=== PATIENT | male | born 1960 | race African-American/Black ===

== ENCOUNTER 2018-08-07 19:17 | Emergency (ER) | payer MEDICAID ==
[~2018-08-07] VITALS: Ht 188 cm; Wt 99.9 kg
[2018-08-07 19:30] VITALS: BP 152/84
[2018-08-07] MEDS ORDERED: ACETAMINOPHEN 500 MG TABLET PO ONE (20:00)
[2018-08-07] MEDS ORDERED: DEXAMETHASONE 4 MG/ML, 1ML PO ONE (20:00)
[2018-08-07] MEDS ORDERED: ACETAMINOPHEN 500 MG TABLET ONE (20:07)
[2018-08-07] MEDS ORDERED: DEXAMETHASONE 4 MG/ML, 5ML ONE (20:07)
--- NOTE | 2018-08-07 20:11 | NUR ---
PT MEDICATED FOR FEVER
== END 2018-08-07 20:29 | disposition home or self-care (01) ==
LOC: ED 20:23
DX: J15.9 Unspecified bacterial pneumonia (principal); F17.200 Nicotine dependence, unspecified, uncomplicated
CPT/HCPCS: 71046; 99283; J1100

== ENCOUNTER 2019-08-26 01:16 | Emergency (ER) | payer SELFPAY ==
[~2019-08-26] VITALS: Ht 188 cm; Wt 68.2 kg
--- NOTE | 2019-08-26 01:23 | NUR ---
EKG DONE AT TIME OF ARRIVAL
--- NOTE | 2019-08-26 01:33 | NUR ---
PT UP TO BR WITH STEADY GAIT.
[2019-08-26 02:13] VITALS: BP 164/78
--- NOTE | 2019-08-26 02:14 | NUR ---
PT RESTING ON GURNEY WITH EYES CLOSED. MONITORING IN PLACE, CALL LIGHT WITHIN REACH. LIGHTS DIMMED FOR PT COMFORT.
[2019-08-26 02:16] LABS: ALBUMIN 3.1 g/dL (3.4-5.0); ANION GAP 5 mmol/L (5-15); CALCIUM 8.7 mg/dL (8.5-10.1); CHLORIDE 108 mmol/L (98-107)
[2019-08-26 02:22] LABS: ALANINE AMINOTRANSFERASE 48 U/L (12-78); ALKALINE PHOSPHATASE 74 U/L (45-117); BILIRUBIN,TOTAL 0.4 mg/dL (0.2-1.0); CREATININE 0.81 mg/dL (0.7-1.3); TOTAL PROTEIN 7.2 g/dL (6.4-8.2); TROPONIN I < 0.015 ng/mL (0.000-0.045)
[2019-08-26 02:24] LABS: MEAN CORPUSCULAR HEMOGLOBIN 18.3 pg (27.5-34.5); MEAN CORPUSCULAR VOLUME 62.1 fL (81-97); MEAN PLATELET VOLUME 7.1 fL (7.4-10.4); PLATELET COUNT 320 x10^3/uL (130-400); RED BLOOD COUNT 4.61 x10^6/uL (4.38-5.82); RED CELL DISTRIBUTION WIDTH 20.8 % (9.4-14.8)
[2019-08-26 02:26] LABS: MEAN CORPUSCULAR HGB CONC 29.5 g/dL (33.2-36.2)
[2019-08-26 02:47] LABS: MD YES
[2019-08-26 02:52] LABS: BAND#(MANUAL) 0.05 x10^3/uL; BANDS%(MANUAL) 1 % (0-7); LYMPH#(MANUAL) 2.48 x10^3/uL (1-3.4); LYMPHS% (MANUAL) 46 % (22-44); METAMYELOCYTES# (MANUAL) 0.05 x10^3/uL (0-0); METAMYELOCYTES% (MANUAL) 1 % (0-1); MONOS#(MANUAL) 0.65 x10^3/uL (0.3-2.7); MONOS% (MANUAL) 12 % (2-9); SEG#(MANUAL) 2.16 x10^3/uL (1.8-6.8); SEGS% (MANUAL) 40 % (42-75)
[2019-08-26 02:53] LABS: ANISOCYTOSIS 1+; HYPOCHROMIA 2+; MICROCYTOSIS 2+
[2019-08-26 02:54] LABS: OVALOCYTES 1+; POLYCHROMASIA 1+
[2019-08-26 02:55] LABS: <PLATELET ESTIMATE> ADEQUATE; <PLT MORPHOLOGY> NORMAL PLT MORPH; SCHISTOCYTES 1+; TARGET CELLS 1+
== END 2019-08-26 03:49 | disposition home or self-care (01) ==
LOC: ED 02:45
DX: K29.00 Acute gastritis without bleeding (principal); D50.9 Iron deficiency anemia, unspecified; R10.12 Left upper quadrant pain; R94.31 Abnormal electrocardiogram [ECG] [EKG]
CPT/HCPCS: 36415; 71045; 80053; 83690; 84484; 85025; 93005; 99285

== ENCOUNTER 2020-07-14 20:26 | Emergency (ER) | payer MEDICAID ==
[~2020-07-14] VITALS: Ht 188 cm; Wt 93.8 kg
--- NOTE | 2020-07-14 21:05 | NUR ---
patient resting in bed in NAD. VS remain stable. family member/friend at bedside. patient reports "i vomited in the sink when i got in this room". patient states this is the first time he has vomited with this pain. has no history of same. call salgado in reach. safety maintained. will continue to monitor
[2020-07-14] MEDS ORDERED: MORPHINE SULFATE 4 MG/ML, 1ML ONE (21:30)
[2020-07-14] MEDS ORDERED: ONDANSETRON 2MG/ML, 2ML ONE (21:30)
[2020-07-14] MEDS ORDERED: SODIUM CHLORIDE FLUSH 10ML SYR IVF ONE (21:30)
[2020-07-14] MEDS ORDERED: MORPHINE SULFATE 4 MG/ML, 1ML IVPush PRN (21:30)
[2020-07-14] MEDS ORDERED: ONDANSETRON 2MG/ML, 2ML IVPush ONE (21:30)
[2020-07-14 22:03] LABS: MEAN CORPUSCULAR HEMOGLOBIN 19.7 pg (27.5-34.5); MEAN PLATELET VOLUME 6.9 fL (7.4-10.4); PLATELET COUNT 383 x10^3/uL (130-400); RED BLOOD COUNT 4.19 x10^6/uL (4.38-5.82); RED CELL DISTRIBUTION WIDTH 21.9 % (9.4-14.8)
--- NOTE | 2020-07-14 22:03 | NUR ---
patient resting in bed in NAD. pain medication and nausea medication administered with effect. VS remain stable. will continue to monitor. waiting for labs to result for CT. urinal at bedside and cleaning wipe. patient aware of need for clean catch UA
[2020-07-14 22:10] LABS: ANION GAP 3 mmol/L (5-15); CALCIUM 8.9 mg/dL (8.5-10.1); CHLORIDE 108 mmol/L (98-107)
[2020-07-14 22:15] LABS: ALANINE AMINOTRANSFERASE 24 U/L (12-78); ALKALINE PHOSPHATASE 59 U/L (45-117); BILIRUBIN,TOTAL 0.3 mg/dL (0.2-1.0); CREATININE 1.05 mg/dL (0.7-1.3); TOTAL PROTEIN 6.7 g/dL (6.4-8.2)
[2020-07-14 22:24] LABS: MICROSCOPIC INDICATED
[2020-07-14 22:46] LABS: MD YES
[2020-07-14 22:47] LABS: ANISOCYTOSIS 1+; BASOS#(MANUAL) 0.09 x10^3/uL (0-0.1); BASOS% (MANUAL) 2 % (0-1); EOS#(MANUAL) 0.09 x10^3/uL (0.0-0.4); EOS% (MANUAL) 2 % (1-7); LYMPH#(MANUAL) 1.41 x10^3/uL (1-3.4); LYMPHS% (MANUAL) 30 % (22-44); MICROCYTOSIS 2+; MONOS#(MANUAL) 0.75 x10^3/uL (0.3-2.7); MONOS% (MANUAL) 16 % (2-9); SEG#(MANUAL) 2.35 x10^3/uL (1.8-6.8); SEGS% (MANUAL) 50 % (42-75)
[2020-07-14 22:48] LABS: <PLATELET ESTIMATE> ADEQUATE; HYPOCHROMIA 2+; OVALOCYTES 1+; TARGET CELLS 1+
[2020-07-14 22:49] LABS: <PLT MORPHOLOGY> NORMAL PLT MORPH
--- NOTE | 2020-07-14 23:27 | NUR ---
patient denies pain/nausea. resting in bed in NAD. Vs remain stable. call salgado in reach
[2020-07-14] MEDS ORDERED: OMNIPAQUE 350 MG/ML, 100ML BOTTLE ONE (23:47)
--- NOTE | 2020-07-14 23:47 | NUR ---
discharge instructions reviewed with patient. no further questions at this time. prescription handed directly to patient. all personal belongings with patient on dc. IV removed per dc protocol. denies N/V/ pain at time of DC. steady gait to lobby.
[2020-07-14 23:48] VITALS: BP 146/87
== END 2020-07-15 | disposition home or self-care (01) ==
LOC: ED 23:00
DX: R10.32 Left lower quadrant pain (principal); R10.12 Left upper quadrant pain; K59.00 Constipation, unspecified; R11.2 Nausea with vomiting, unspecified
CPT/HCPCS: 36415; 74177; 80053; 81001; 83690; 85025; 96374; 96375; 99285; J2270; J2405; Q9967

== ENCOUNTER 2020-11-12 15:04 | Emergency (ER) | payer MEDICAID ==
[~2020-11-12] VITALS: Ht 190.5 cm; Wt 90.5 kg
[2020-11-12 15:12] VITALS: BP 132/80
--- NOTE | 2020-11-12 17:33 | NUR ---
principal cyber engineer: attempted to call pt to room, no answer in lobby
--- NOTE | 2020-11-12 17:47 | NUR ---
mlt: attempted to call pt to room, no answer in lobby
--- NOTE | 2020-11-12 18:45 | NUR ---
table cut off saw operator: attempted to call pt from lobby to room, no answer in lobby
== END 2020-11-12 18:47 | disposition left against medical advice (07) ==
LOC: ED 15:05
DX: K59.00 Constipation, unspecified (principal); Z53.21 Procedure and treatment not carried out due to patient leaving prior to being seen by health care provider
CPT/HCPCS: 99281

== ENCOUNTER 2021-02-05 22:55 | Inpatient (IN) | payer MEDICAID ==
[~2021-02-05] VITALS: Ht 188 cm; Wt 80.3 kg
[2021-02-05 23:21] LABS: BASOPHILS % (AUTO) 1 % (0-1); EOSINOPHILS % (AUTO) 4 % (1-7); LYMPHOCYTES % (AUTO) 35 % (22-44); MEAN CORPUSCULAR HEMOGLOBIN 17.6 pg (27.5-34.5); MEAN PLATELET VOLUME 8.2 fL (7.4-10.4); MONOCYTES % (AUTO) 20 % (2-9); NEUTROPHILS % (AUTO) 40 % (42-75); PLATELET COUNT 330 x10^3/uL (130-400); RED BLOOD COUNT 3.38 x10^6/uL (4.38-5.82); RED CELL DISTRIBUTION WIDTH 20.1 % (9.4-14.8)
[2021-02-05 23:29] LABS: ALANINE AMINOTRANSFERASE 33 U/L (12-78); ALBUMIN 2.5 g/dL (3.4-5.0); ANION GAP 4 mmol/L (5-15); CALCIUM 8.2 mg/dL (8.5-10.1); CHLORIDE 107 mmol/L (98-107); CREATININE 1.22 mg/dL (0.7-1.3)
[2021-02-05 23:34] LABS: ALKALINE PHOSPHATASE 66 U/L (45-117); BILIRUBIN,TOTAL 0.3 mg/dL (0.2-1.0); TOTAL PROTEIN 6.4 g/dL (6.4-8.2); TROPONIN I < 0.015 ng/mL (0.000-0.045)
--- NOTE | 2021-02-05 23:37 | NUR ---
ATTEMPTED TO CALL ERINN (PATIENT EMERGENCY CONTACT) [phone] PER PATIENT REQUEST. NO ANSWER.
[2021-02-05 23:49] LABS: ANISOCYTOSIS 2+; HYPOCHROMIA 2+; MICROCYTOSIS 2+; OVALOCYTES 1+; SCHISTOCYTES 1+; TARGET CELLS 1+
[2021-02-05 23:50] LABS: <PLATELET ESTIMATE> ADEQUATE; <PLT MORPHOLOGY> NORMAL PLT MORPH
[2021-02-06] VITALS (8 sets, daily range): BP systolic 110–157; BP diastolic 67–93
--- NOTE | 2021-02-06 00:05 | NUR ---
BLOOD CONSENT SIGNED AT THIS TIME.
--- NOTE | 2021-02-06 00:36 | NUR ---
ATTEMPTED X 1 TO CALL REPORT.
--- NOTE | 2021-02-06 00:44 | NUR ---
REPORT GIVEN TO DANTE GALLEGOS.
[2021-02-06] MEDS ORDERED: MELATONIN 5 MG TABLET PO PRN (01:00)
[2021-02-06] MEDS ORDERED: ACETAMINOPHEN 325 MG TABLET PO PRN (01:00)
[2021-02-06] MEDS ORDERED: DOCUSATE 100 MG CAPSULE PO PRN (01:00)
[2021-02-06] MEDS ORDERED: morphine SULFATE 10 MG/ML, 1ML IVPush PRN (01:00)
[2021-02-06 06:16] LABS: MEAN CORPUSCULAR HEMOGLOBIN 18.4 pg (27.5-34.5); MEAN CORPUSCULAR HGB CONC 29.4 g/dL (33.2-36.2); PLATELET COUNT 336 x10^3/uL (130-400); RED BLOOD COUNT 3.74 x10^6/uL (4.38-5.82); RED CELL DISTRIBUTION WIDTH 22.4 % (9.4-14.8)
[2021-02-06 06:23] LABS: CHLORIDE 110 mmol/L (98-107)
[2021-02-06 06:32] LABS: % IRON SATURATION 5 % (20-55); ANION GAP 4 mmol/L (5-15); CALCIUM 8.6 mg/dL (8.5-10.1); CHOL/HDL RATIO 2.2; CHOLESTEROL, TOTAL 114 mg/dL (140-239); HDL CHOL % 45 % (26-37); HDL CHOLESTEROL (DIRECT) 51 mg/dL (40-60); IRON LEVEL 23 mcg/dL (65-175); LDL CHOLESTEROL,CALCULATED 57 mg/dL (54-169); LDL/HDL RATIO 1.1 (0.5-3.0); TOTAL IRON BINDING CAPACITY 467 mcg/dL (250-450); TRIGLYCERIDES 30 mg/dL (50-200); TROPONIN I < 0.015 ng/mL (0.000-0.045); VLDL CHOLESTEROL 6 mg/dL (0-25)
[2021-02-06 06:46] LABS: BASOS#(MANUAL) 0.09 x10^3/uL (0-0.1); BASOS% (MANUAL) 2 % (0-1); EOS#(MANUAL) 0.14 x10^3/uL (0.0-0.4); EOS% (MANUAL) 3 % (1-7); LYMPH#(MANUAL) 1.75 x10^3/uL (1-3.4); LYMPHS% (MANUAL) 38 % (22-44); MONOS#(MANUAL) 0.51 x10^3/uL (0.3-2.7); MONOS% (MANUAL) 11 % (2-9); SEG#(MANUAL) 2.12 x10^3/uL (1.8-6.8); SEGS% (MANUAL) 46 % (42-75)
[2021-02-06 06:47] LABS: ANISOCYTOSIS 2+; MICROCYTOSIS 2+
[2021-02-06 06:48] LABS: HYPOCHROMIA 3+; OVALOCYTES 1+; TARGET CELLS 1+
[2021-02-06 06:49] LABS: <PLATELET ESTIMATE> ADEQUATE; <PLT MORPHOLOGY> NORMAL PLT MORPH; SCHISTOCYTES 1+
[2021-02-06] MEDS ORDERED: REGADENOSON 0.4 MG/5 ML SYRINGE ONE (09:44)
[2021-02-06] MEDS: IRON SUCROSE COMPLEX 100MG/5ML IV SCH (11:19)
[2021-02-06 12:13] LABS: RETICULOCYTE COUNT % 1.36 % (0.5-1.5)
[2021-02-06 14:40] LABS: TROPONIN I < 0.015 ng/mL (0.000-0.045)
[2021-02-07 01:32] VITALS: BP 149/90
[2021-02-07 05:11] LABS: ALANINE AMINOTRANSFERASE 30 U/L (12-78); ALBUMIN 2.5 g/dL (3.4-5.0); ANION GAP 4 mmol/L (5-15); BASOPHILS % (AUTO) 1 % (0-1); CALCIUM 8.6 mg/dL (8.5-10.1); CHLORIDE 108 mmol/L (98-107); CREATININE 0.99 mg/dL (0.7-1.3); EOSINOPHILS % (AUTO) 3 % (1-7); LYMPHOCYTES % (AUTO) 32 % (22-44); MEAN CORPUSCULAR HEMOGLOBIN 18.9 pg (27.5-34.5); MEAN PLATELET VOLUME 8.4 fL (7.4-10.4); MONOCYTES % (AUTO) 16 % (2-9); NEUTROPHILS % (AUTO) 48 % (42-75); PLATELET COUNT 328 x10^3/uL (130-400); RED CELL DISTRIBUTION WIDTH 21.8 % (9.4-14.8)
[2021-02-07 05:38] LABS: ALKALINE PHOSPHATASE 65 U/L (45-117); BILIRUBIN,TOTAL 0.4 mg/dL (0.2-1.0); TOTAL PROTEIN 6.5 g/dL (6.4-8.2)
[2021-02-07 06:07] LABS: MEAN CORPUSCULAR HGB CONC 29.8 g/dL (33.2-36.2)
[2021-02-07 06:10] LABS: ANISOCYTOSIS 2+; HYPOCHROMIA 3+; MICROCYTOSIS 2+; OVALOCYTES 1+; SCHISTOCYTES 1+; TARGET CELLS 1+
[2021-02-07 06:14] LABS: <PLATELET ESTIMATE> ADEQUATE; <PLT MORPHOLOGY> NORMAL PLT MORPH
[2021-02-07 06:48] VITALS: BP 153/93
[2021-02-07] MEDS: IRON SUCROSE COMPLEX 100MG/5ML IV SCH (09:05)
[2021-02-07] MEDS ORDERED: ERGOCALCIFEROL 50,000 UNIT CAPSULE PO SCH (09:30)
[2021-02-07] MEDS ORDERED: GOLYTELY 4,000ML ORAL.SOL PO ONE ×2 (11:30→17:00)
[2021-02-07 12:19] VITALS: BP 120/78
[2021-02-07 19:00] VITALS: BP 162/93
[2021-02-08 00:17] VITALS: BP 157/87
[2021-02-08 06:45] VITALS: BP 143/89
[2021-02-08] MEDS: IRON SUCROSE COMPLEX 100MG/5ML IV SCH (08:36)
[2021-02-08 12:53] VITALS: BP 155/91
[2021-02-08] MEDS ORDERED: PROPOFOL 10 MG/ML, 20ML ONE (14:01)
[2021-02-08] MEDS ORDERED: ONDANSETRON 2MG/ML, 2ML ONE (14:01)
[2021-02-08] MEDS ORDERED: FENTANYL PF 100 MCG/2ML ONE (14:06)
[2021-02-08] MEDS ORDERED: hydrALAzine 20 MG/ML, 1ML IV PRN (14:30)
[2021-02-08] MEDS ORDERED: ONDANSETRON 2MG/ML, 2ML IVPush PRN (14:30)
[2021-02-08] MEDS ORDERED: METOCLOPRAMIDE 5 MG/ML, 2ML IV PRN (14:30)
[2021-02-08] MEDS ORDERED: OXYcodone 5 MG/5 ML ORAL.SOL UDC PO PRN (14:30)
[2021-02-08] MEDS ORDERED: FENTANYL PF 100 MCG/2ML IV PRN (14:30)
[2021-02-08] MEDS ORDERED: HYDROmorphone 1 MG/ML, 1ML INJ IV PRN (14:30)
[2021-02-08] MEDS ORDERED: KETOROLAC 30 MG/1 ML IV PRN (14:30)
[2021-02-08] MEDS ORDERED: DIAZEPAM 5 MG/ML, 2ML IV PRN ×2 (14:30)
[2021-02-08] MEDS ORDERED: ALBUTEROL SULFATE 2.5 MG/3 ML NPPB PRN (14:30)
[2021-02-08] MEDS ORDERED: LABETALOL 5MG/ML, 20ML IV PRN (14:30)
[2021-02-08] MEDS ORDERED: PROMETHAZINE 25 MG/ML, 1ML IV PRN (14:30)
[2021-02-08] MEDS ORDERED: MEPERIDINE/PF 25MG/0.5ML IVPush PRN (14:30)
[2021-02-08] MEDS ORDERED: MIDAZOLAM 1 MG/ML, 2ML ONE (14:46)
[2021-02-08 19:10] VITALS: BP 135/72
[2021-02-09 01:32] VITALS: BP 139/75
[2021-02-09 05:11] LABS: MEAN CORPUSCULAR HEMOGLOBIN 19.1 pg (27.5-34.5); MEAN PLATELET VOLUME 8.2 fL (7.4-10.4); PLATELET COUNT 296 x10^3/uL (130-400); RED BLOOD COUNT 3.84 x10^6/uL (4.38-5.82); RED CELL DISTRIBUTION WIDTH 22.5 % (9.4-14.8)
[2021-02-09 05:16] LABS: ANION GAP 4 mmol/L (5-15); CALCIUM 8.5 mg/dL (8.5-10.1); CHLORIDE 106 mmol/L (98-107)
[2021-02-09 05:18] LABS: CREATININE 0.97 mg/dL (0.7-1.3)
[2021-02-09 05:23] LABS: MEAN CORPUSCULAR HGB CONC 29.7 g/dL (33.2-36.2)
[2021-02-09 05:59] LABS: ANISOCYTOSIS 2+; BAND#(MANUAL) 0.13 x10^3/uL; BANDS%(MANUAL) 2 % (0-7); EOS#(MANUAL) 0.19 x10^3/uL (0.0-0.4); EOS% (MANUAL) 3 % (1-7); HYPOCHROMIA 3+; LYMPH#(MANUAL) 1.07 x10^3/uL (1-3.4); LYMPHS% (MANUAL) 17 % (22-44); MICROCYTOSIS 2+; MONOS#(MANUAL) 0.82 x10^3/uL (0.3-2.7); MONOS% (MANUAL) 13 % (2-9); OVALOCYTES 1+; POLYCHROMASIA 1+; SCHISTOCYTES 1+; SEGS% (MANUAL) 65 % (42-75); TARGET CELLS 1+
[2021-02-09 06:00] LABS: <PLATELET ESTIMATE> ADEQUATE; <PLT MORPHOLOGY> NORMAL PLT MORPH; TEAR DROPS 1+
[2021-02-09 06:28] VITALS: BP 143/79
[2021-02-09] MEDS: IRON SUCROSE COMPLEX 100MG/5ML IV SCH (08:05)
[2021-02-09] MEDS ORDERED: FERR324T18 PO (11:19)
[2021-02-09] MEDS ORDERED: DOCU-131 PO (11:19)
[2021-02-09] MEDS ORDERED: ERGO500017 PO (11:19)
[2021-02-09 12:03] VITALS: BP 141/83
== END 2021-02-09 13:40 | disposition home or self-care (01) | DRG 812 ==
LOC: ED 02-06 00:05 → EDIP 02-06 00:43 → 5SO 02-06 01:08
PROVIDERS: ADMIT Internal Medicine; ATTEND Internal Medicine
PROC: 30233N1 Transfusion of Nonautologous Red Blood Cells into Peripheral Vein, Percutaneous Approach (ICD-10-PCS; 2021-02-06)
PROC: 0DJ08ZZ Inspection of Upper Intestinal Tract, Via Natural or Artificial Opening Endoscopic (ICD-10-PCS; principal; 2021-02-08 12:30)
PROC: 0DJD8ZZ Inspection of Lower Intestinal Tract, Via Natural or Artificial Opening Endoscopic (ICD-10-PCS; 2021-02-08 12:30)
DX: D50.9 Iron deficiency anemia, unspecified (principal); K92.2 Gastrointestinal hemorrhage, unspecified; B18.2 Chronic viral hepatitis C; D63.8 Anemia in other chronic diseases classified elsewhere; E55.9 Vitamin D deficiency, unspecified; F17.200 Nicotine dependence, unspecified, uncomplicated; J98.4 Other disorders of lung; F17.210 Nicotine dependence, cigarettes, uncomplicated; Z20.822 Contact with and (suspected) exposure to COVID-19; Z79.899 Other long term (current) drug therapy
CPT/HCPCS: 36415; 36430; 71045; 78452; 80048; 80053; 80061; 82306; 82607; 82728; 83036; 83540; 83550; 83735; 84100; 84443; 84484; 85014; 85018; 85025; 85045; 86850; 86900; 86923; 87635; 93005; 93017; 93306; 93356; 99285; G0378; J1756; J2250; J2405; J2704; J2785; J3010; A9502; P9016

== ENCOUNTER 2021-02-23 20:09 | Emergency (ER) | payer MEDICAID ==
[~2021-02-23] VITALS: Ht 188 cm; Wt 81.4 kg
[~2021-02-23 20:09] MED LIST: DOCU-131 PO; ERGO500017 PO; FERR324T18 PO
[2021-02-23 22:10] LABS: BASOPHILS % (AUTO) 1 % (0-1); EOSINOPHILS % (AUTO) 0 % (1-7); LYMPHOCYTES % (AUTO) 21 % (22-44); MEAN CORPUSCULAR HEMOGLOBIN 20.6 pg (27.5-34.5); MEAN CORPUSCULAR HGB CONC 30.4 g/dL (33.2-36.2); MEAN PLATELET VOLUME 8.4 fL (7.4-10.4); MONOCYTES % (AUTO) 9 % (2-9); NEUTROPHILS % (AUTO) 70 % (42-75); PLATELET COUNT 346 x10^3/uL (130-400); RED BLOOD COUNT 4.33 x10^6/uL (4.38-5.82); RED CELL DISTRIBUTION WIDTH 29.8 % (9.4-14.8)
[2021-02-23 22:42] LABS: ANISOCYTOSIS 2+; HYPOCHROMIA 2+; MICROCYTOSIS 2+; OVALOCYTES 1+; POLYCHROMASIA 1+; SCHISTOCYTES 1+
[2021-02-23 22:43] LABS: <PLATELET ESTIMATE> ADEQUATE; TARGET CELLS 1+; TEAR DROPS 1+
[2021-02-23 22:44] LABS: LARGE PLATELETS 1+
[2021-02-23 23:15] VITALS: BP 125/77
--- NOTE | 2021-02-23 23:16 | NUR ---
VS UPDATED. PT RETURNED TO ED LOBBY TO AWAIT ROOM ASSIGNMENT.
[2021-02-24] MEDS ORDERED: DEXAMETHASONE 4 MG TABLET ONE (00:26)
[2021-02-24] MEDS ORDERED: IBUPROFEN 600 MG TABLET ONE (00:27)
[2021-02-24] MEDS ORDERED: ACETAMINOPHEN 325 MG TABLET ONE (00:27)
[2021-02-24] MEDS ORDERED: IBUPROFEN 600 MG TABLET PO ONE (01:00)
[2021-02-24] MEDS ORDERED: ACETAMINOPHEN 325 MG TABLET PO ONE (01:00)
[2021-02-24] MEDS ORDERED: DEXAMETHASONE 4 MG TABLET PO ONE (01:00)
== END 2021-02-24 01:02 | disposition home or self-care (01) ==
LOC: ED 23:59
DX: J15.9 Unspecified bacterial pneumonia (principal); R06.02 Shortness of breath; D53.9 Nutritional anemia, unspecified; B34.9 Viral infection, unspecified; Z20.822 Contact with and (suspected) exposure to COVID-19; F17.200 Nicotine dependence, unspecified, uncomplicated; Z86.19 Personal history of other infectious and parasitic diseases
CPT/HCPCS: 36415; 71045; 85025; 93005; 99285; U0003; U0005